=== PATIENT | female | born 1990 | race Caucasian/White ===

== ENCOUNTER 2021-07-15 13:17 | Inpatient (IN) | payer OTHER, SELFPAY ==
[2021-07-15] VITALS (13 sets, daily range): BP systolic 99–152; BP diastolic 63–86; PULSE 70–118; RESP 16; TEMP 36.1–36.9
[2021-07-15] MEDS: LACTATED RINGERS 1,000 ML 125 ML IV CONT (13:50)
[2021-07-15 13:56] LABS: Basophils Percent Auto 0.2 % (0.2-1.2); Eosinophils Absolute Auto 0.1 K/mm3 (0-0.3); Eosinophils Percent Auto 0.7 % (0-4.4); Hematocrit 31.9 % (37.0-47.0); Hemoglobin 10.6 g/dL (12.0-15.0); Immature Granulocyte Absolute 0.05 K/mm3 (0.00-0.031); Immature Granulocyte Percent A 0.4 % (0-0.5); Lymphocytes Absolute Auto 2.24 K/mm3 (0.9-3.2); Lymphocytes Percent Auto 18.6 % (18.3-44.2); Mean Corpuscular HGB Conc 33.2 g/dl (32-36); Mean Corpuscular Volume 87.4 fl (80-100); Mean Platelet Volume 11.2 fl (7.4-10.4); Monocytes Absolute Auto 0.7 K/mm3 (0.1-0.6); Neutrophils Absolute Auto 8.9 K/mm3 (1.3-6.7); Neutrophils Percent Auto 74.1 % (45.5-73.1); Platelet Count Result 264 k/mm3 (150-375); Red Blood Count 3.65 M/mm3 (4.2-5.4); White Blood Count 12.1 K/mm3 (4.5-10.0)
[2021-07-15] MEDS: LIDOCAINE HCL 1% PF 30 ML VIAL (14:45)
[2021-07-15] MEDS: OXYTOCIN 30 UNITS/NS 500 ML 30 UNITS/500 ML BAG 999 UNITS IV CONT (14:46)
--- NOTE | 2021-07-15 15:01 | WPDOBADMIT ---
Obstetrics - Admit Note Admission Note: record reviewed. Additions to the history and/or subsequent changes in the physical findings follow. 30 y/o at 36 5/7 weeks here with contractions. Cervix 7 cm on admission, has progressed rapidly. GBS neg. AVSS NST reactive TOCO: contractions every 2-3 min ABD soft, nontender, gravid EXT nontender Cervix Complete / +2. AROM with thin meconium. A: IUP at 36 5/7 weeks with labor. P: See delivery note.
--- NOTE | 2021-07-15 15:03 | PM.OBPRVD ---
OB - Delivery Note Procedure Delivery date: 07/15/21 Procedure: Delivery monitor: external FHT and external uterine Route of delivery: Laceration Description: Perineal - 2nd Degree Delivery repair: vicryl (3-0) Specimen: Yes (cord blood) Quantitative Blood Loss (ml): 165 Anesthesia type: Local (1% lidocaine) Disposition: PACU Complications: None Narrative: 30 y/o G1 at 38 6/7 weeks gestation who presented to the hospital with contractions. She was 7 cm dilated on admission and rapidly progressed to complete dilation. AROM with thin meconium. There was not time to start antibiotics for status. GBS was negative, however. She pushed with good effort and delivered the infant's head to the perineum, followed by the body. The nose and mouth were bulb suctioned. After a delay, the cord was clamped and cut. The infant was handed off the field. Cord blood was collected. The placenta delivered spontaneously and was grossly normal in appearance. The usual 3 vessel cord was noted. A second degree midline perineal laceration was sustained. This was infiltrated with 12 mL of 1% lidocaine and reapproximated using 3 0 Vicryl in the usual layered fashion. Excellent hemostasis resulted as did excellent reapproximation of the normal anatomy. Needle and instrument counts were correct. The patient was taken to recovery room in stable condition. The went to the nursery in stable condition. I was present and scrubbed for the entire delivery. [place] Baby Date of : 07/15/21 Time of : 18:39 Weeks of gestation at delivery: 38 Infant gender: Female Weight (pounds): 7 Weight (ounces): 4 presentation: vertex position: Left Occiput Anterior Placenta delivery description: Spontaneous and Normal Configuration cord vessel description: 3 Vessels and Delayed Cord Clamping score one minute: 8 score five minutes: 9
--- NOTE | 2021-07-15 15:04 | P.DS_ITS ---
DS: Admitting Diagnosis Discharge Date 07/16/21 Admitting Diagnosis IUP at 36 5/7 weeks Labor DS: Discharge Diagnosis Discharge Diagnosis (1) (normal spontaneous vaginal delivery): Code(s): O80 - Encounter for full-term uncomplicated delivery Status: Acute (2) labor with delivery: Code(s): O60.10X0 - labor with delivery, unspecified trimester, not applicable or unspecified Status: Acute OB - DS: Summary OB Procedures : None OB Procedures Intrapartum: Spontaneous Vag Delivery OB Procedures: : None DS: Data Data Completed and Pending Labs on day of discharge: Labs from last 24 hours 07/15/21 07/15/21 13:48 13:48 WBC 12.1 H RBC 3.65 L Hgb 10.6 L Hct 31.9 L MCV 87.4 MCH 29.0 MCHC 33.2 RDW 13.0 Plt Count 264 MPV 11.2 H Immature Gran % (Auto) 0.4 Neut % (Auto) 74.1 H Lymph % (Auto) 18.6 [place] % (Auto) 6.0 Eos % (Auto) 0.7 Baso % (Auto) 0.2 Lymph # (Auto) 2.24 [place] # (Auto) 0.7 H Eos # (Auto) 0.1 Baso # (Auto) 0.0 Abs Immat Gran (auto) 0.05 H Absolute Neuts (auto) 8.9 H Absolute Nucleated RBC 0.0 Nucleated RBC % 0.0 RPR Pending Discharge Plan Discharge Attending physician on discharge: Dallin Meza Discharging Clinician: Dallin Meza Patient Disposition: Home, Self-Care Activity: pelvic rest Diet: regular Discharge Instructions: Call or return if temperature above 100.4? F, increased abdominal pain, increased vaginal bleeding or any new problems. Stand Alone Forms: General Discharge Information Follow-up/Referrals: Dallin Meza MD [Physician] - 6 Weeks Discharge Medications: New ibuprofen 600 mg tablet 600 mg PO Q6H PRN (Reason: cramps) Qty: 30 RF: 0 ferrous sulfate 325 mg (65 mg iron) tablet 325 mg PO DAILY Qty: 30 RF: 0 Continued PNV cmb#95-ferrous fumarate-FA [] 28 mg iron- 800 mcg Tablet 1 tablet PO DAILY RF: 0 Date of admission: 07/15/21 13:17 Primary Care Provider: Meet,Jenniffer Vázquez Admitting Provider: Dallin Meza Attending physician on admission: Dallin Meza Condition: Stable
[2021-07-15] MEDS: OXYTOCIN 30 UNITS/NS 500 ML 30 UNITS/500 ML BAG 125 UNITS IV CONT (15:10)
--- NOTE | 2021-07-15 15:53 | LDADM ---
This patient, Arleth Tirado, was admitted to Labor/Delivery/Recovery 105 on 07/15/21 at 13:17. Plans for labor, pain management and were discussed with patient. Patient/family oriented to hospital policies and general routines including ID bracelet, bed and alarms, visiting hours, pain management, procedures, bathroom and other care routines, personal items, smoking policy, room service/diet and guest tray routines, infant security routines, and visiting hours. Patient/Family are encouraged to report perceived risks to care and to ask questions if they do not understand what they are told or what they should do. See OBIX for further documentation.
[2021-07-15] MEDS: IBUPROFEN 600 MG TABLET PO ×2 (16:23→22:38)
[2021-07-15] MEDS: WITCH HAZEL 40 PADS 1 PAD TOPICAL (16:24)
[2021-07-15] MEDS: BENZOCAINE 20% AER SPR (*SP) 56 GM CAN 1 SPRAY TOPICAL (16:24)
--- NOTE | 2021-07-15 17:34 | PC.NURSE ---
Patient transferred to post room #290. Support person present. Oriented to unit, room, information board, rooming in, admission packet and security measures. Patient verbalizes understanding.
[2021-07-16] MEDS: IBUPROFEN 600 MG TABLET PO (04:39)
[2021-07-16 05:19] LABS: Hematocrit 27.8 % (37.0-47.0); Hemoglobin 9.1 g/dL (12.0-15.0)
[2021-07-16 08:25] VITALS: BP 118/76; PULSE 85; RESP 18; TEMP 37.1; O2SAT 99
--- NOTE | 2021-07-16 08:45 | PM.OBPNVD ---
OB - PN: Subj Subjective Date/time seen: 07/16/21 0845 Narrative: Pain OK. Would like to go home. OB - PN: Obj Data Labs CBC & Chem 7: 07/16/21 04:38 Labs: Laboratory Results - last 24 hr 07/15/21 07/15/21 07/15/21 13:48 13:48 13:48 WBC 12.1 H RBC 3.65 L Hgb 10.6 L Hct 31.9 L MCV 87.4 MCH 29.0 MCHC 33.2 RDW 13.0 Plt Count 264 MPV 11.2 H Immature Gran % (Auto) 0.4 Neut % (Auto) 74.1 H Lymph % (Auto) 18.6 [place] % (Auto) 6.0 Eos % (Auto) 0.7 Baso % (Auto) 0.2 Lymph # (Auto) 2.24 [place] # (Auto) 0.7 H Eos # (Auto) 0.1 Baso # (Auto) 0.0 Abs Immat Gran (auto) 0.05 H Absolute Neuts (auto) 8.9 H Absolute Nucleated RBC 0.0 Nucleated RBC % 0.0 RPR Non-reactive Blood Type AB Positive Antibody Screen Negative 07/16/21 04:38 WBC RBC Hgb 9.1 L Hct 27.8 L MCV MCH MCHC RDW Plt Count MPV Immature Gran % (Auto) Neut % (Auto) Lymph % (Auto) [place] % (Auto) Eos % (Auto) Baso % (Auto) Lymph # (Auto) [place] # (Auto) Eos # (Auto) Baso # (Auto) Abs Immat Gran (auto) Absolute Neuts (auto) Absolute Nucleated RBC Nucleated RBC % RPR Blood Type Antibody Screen OB - PN A/P Plan Comments: A: PPD#1, doing well. P: Home if OK with peds, to f/u 6 weeks. Exam Psych: Other: AVSS ABD soft, nontender, fundus firm EXT nontender
--- NOTE | 2021-07-16 09:00 | PC.NURSE ---
Consult with pt., mother reports is eagerly feeding with slight tenderness. This is mother?s 2nd child to breastfeed. Reviewed feeding cues, frequencies, duration of feedings, feeding elimination flow sheet, and signs of adequate intake. Demonstrated stimulation techniques to wake for feeding. Reviewed signs of a correct latch, effective nursing and suck swallow ratio. Nipple care reviewed of lanolin after feedings and warm compresses as needed. Requested mother to call out for RN/LC assistance next feeding to assess latch due reported nipple tenderness. Instructed feeding should be initiated three hours from start of last feeding or if feeding cues are noted before. Mother voiced understanding of information shared.
[2021-07-16] MEDS: POLYSACCHARIDE IRON COMPLEX 150 MG CAPSULE PO (09:11)
[2021-07-16] MEDS: MULTIVIT/MIN/PREN/FOL AC/IRON TABLET 1 TAB PO (09:11)
[2021-07-16] MEDS: DOCUSATE SODIUM 100 MG CAPSULE PO (09:11)
[2021-07-16 11:48] VITALS: BP 107/71; PULSE 69; RESP 18; TEMP 36.8; O2SAT 100
--- NOTE | 2021-07-16 12:45 | PC.NURSE ---
Mother called out for assist with feeding. is able to freely thrust tongue past gum ridge and flange both lips. Skin is intact on both nipples, no redness and bruising noted. Discussed establishing in the late may be more difficult due to their immaturity, may be less alert, have less stamina, and have greater difficulty with latch, suck, and swallow. ?s feeding may impact mother?s milk supply, pumping may need to be initiated until milk supply is well established and is able to effectively breastfeed without supplementation. Reviewed infant feeding cues, frequencies, duration of feedings, feeding elimination flow sheet, and signs of adequate intake. Demonstrated stimulation techniques to wake infant for feeding. Assisted with to breast. Reviewed positioning/alignment in cross cradle, holding breast in ?U? hold and guided asymmetrical latch on. Reviewed rational for each. Mother puts to breast in cradle. Infant able to latch correctly within a few attempts. nursed eagerly with steady draws and occasional swallowing noted, some pausing noted. Reviewed signs of a correct latch, effective nursing and suck swallow ratio. Suggested mother stimulate while feeding to increase stimulation for milk supply, for increased intake and to assist with maintaining deep latch. would slip to shallow latch causing tenderness. Demonstrated how to adjust latch more deeply while feeding as needed. Mother reports she can feel the difference in latch with less tenderness. Suggested mother hold breast during entire feeding to assist maintaining deep latch. Nipple care reviewed of lanolin after feedings, warm compresses as needed. Instructed mother to call out for RN assistance if she is unable to latch for feeding or she has discomfort with nursing. Instructed feeding should be initiated three hours from start of last feeding or if feeding cues are noted before. Mother voiced understanding of information shared.
[2021-07-16 12:58] LABS: Rapid Plasma Reagin Non-Reactive (NonReactive)
--- NOTE | 2021-07-16 16:40 | PC.NURSE ---
Patient instructed to view the discharge video Mother & Baby Care, The First Two Weeks . Patient was given the opportunity and encouraged to ask questions. Patient verbalized understanding of information shared and has been given the mother/baby guide for home reference.
[2021-07-18 13:47] VITALS: BP 122/74; PULSE 77; RESP 20; TEMP 37.1; O2SAT 98
== END 2021-07-16 17:12 | disposition home or self-care (01) | DRG 807 ==
LOC: ANHLDR 13:44 → ANHOB2 17:47
PROVIDERS: Admitting Provider Obstetrics & Gynecology; PCP Internal Medicine; Visit Provider Obstetrics & Gynecology
DX: O60.14X0 Preterm labor third trimester with preterm delivery third trimester, not applicable or unspecified (principal); Z37.0 Single live birth; Z3A.36 36 weeks gestation of pregnancy; P96.83 Meconium staining; O70.1 Second degree perineal laceration during delivery
CPT/HCPCS: 36415; 85014; 85018; 85025; 86592; 86850; 86900; 86901; 88307; A9270; J2590; J2795; J7120

== ENCOUNTER 2021-07-24 11:30 | Outpatient (RCR) | payer OTHER, SELFPAY ==
--- NOTE | 2021-07-24 12:00 | PC.NURSE ---
IN 1010 OUT 1100 HISTORY: Pt. delivered at [facility] at 36 weeks. had no complications after delivery. Mother had no complications after delivery. Mother and discharged, with a feeding plan with pumping and supplementation after each feeding due to ineffective feeding, and jaundice. Infant is now 9 days old. appears to be well cared for. last seen seen by ICP at 7 days. Mother reports: Currently at 6 wets per day and 3 yellow seedy stools per day. weight: 7#4 Discharge weight: 6#8 Last Weight: 7#0 at 1 week Mother reports is very sleepy at breast. Mother puts to breast each feeding for 15-30 minutes, reporting infant is eager for first breast and will have more sleeping then feeding on second breast. Mother is pumping and supplementing EBM up to 2 oz per feeding. Mother feels very full at breasts after feeding. She is pumping with slight tenderness at times. Mother wishes: To pump and supplement less. OBSERVATION: Pre feeding weight: 3194 Post feeding weight: 3261 Tongue is able to move tongue freely past gum ridge, both lips flange easily. Mother has everted nipples, skin is intact slightly reddened. Discussed establishing in the may be more difficult due to their immaturity, may be less alert, have less stamina, and have greater difficulty with latch, suck, and swallow. ?s feeding may impact mother?s milk supply, pumping may need to be continued until infant is able to effectively breastfeed without supplementation. Mother appears to be firm almost engorged to breast. Discussed fore and hind milk, advising to self express before feeding to soften breast for deeper latch and for to get to hind milk quickly. Mother puts to breast in cradle and allows infant to self attach shallow. Infant is sleepy with intermittent suck swallow. Demonstrated stimulation techniques to wake infant for feeding. Assisted with to breast. Reviewed positioning/alignment in cross cradle, holding breast in ?U? hold and guided asymmetrical latch on. Reviewed rational for each. Infant able to latch correctly within a few attempts. nursed eagerly with steady draws and occasional swallowing noted followed with long pausing. Advised mother stimulate while feeding to increased intake and to assist with maintaining deep latch. Reviewed signs of a correct latch, effective nursing and suck swallow ratio. Infant would slip to shallow latch causing tenderness. Demonstrated how to adjust latch more deeply while feeding as needed. Mother reports she can feel the difference in latch with no tenderness. Discussed with an early stimulation while at breast and assisting to maintain latch is needed every feeding. Discussed the difference of effective vs ineffective feeding. Reviewed infant is latching with good burst of suckling, she is not feeding consistently with adequate milk transfer at this time and continues to need supplement after . Feeding options discussed, Feeding Plan is for mother to put to breast each feeding for up to 15 minutes, then pace feed supplement pump f other breast to empty. Mother will comfort pump infant nursed if needed. Parents are comfortable with supplementation and pumping. Reviewed when infant begins to nurse effectively with long draws and frequent swallowing noted, may decrease supplementation and discontinue pumping. Suggested mother have PCP, LC softball core molder observe feeding before discontinuing supplementation. Discussed increasing supplementation as requires to satisfactions. Reviewed paced feeding and suggested to st
--- NOTE | 2021-07-28 14:53 | PC.NURSE ---
Attempt to call Arleth two times today. Messages left. In the last message, I told Arleth that a nurse from the office would call her again later in the week. I encouraged her to Dr. Mitzi Meza if she has any questions or concerns this week. Notes from LC visit last week faxed to Dr. Mitzi Meza.
== END 2021-08-07 12:42 | disposition home or self-care (01) ==
LOC: ANHOBOP 11:30
PROVIDERS: PCP Internal Medicine; Visit Provider Pediatrics
DX: Z39.1 Encounter for care and examination of lactating mother (principal)
CPT/HCPCS: 99212; G0463

== ENCOUNTER 2023-10-16 08:38 | Inpatient (IN) | payer OTHER, SELFPAY ==
[2023-10-16] VITALS (28 sets, daily range): BP systolic 109–148; BP diastolic 66–95; PULSE 76–103; RESP 16; TEMP 36.6–37; O2SAT 97–100; BMI 37.1
[2023-10-16 10:55] LABS: Basophils Percent Auto 0.2 % (0.2-1.2); Eosinophils Absolute Auto 0.1 K/mm3 (0-0.3); Eosinophils Percent Auto 0.6 % (0-4.4); Hematocrit 34.1 % (37.0-47.0); Hemoglobin 10.9 g/dL (12.0-15.0); Immature Granulocyte Absolute 0.03 K/mm3 (0.00-0.031); Immature Granulocyte Percent A 0.4 % (0-0.5); Lymphocytes Absolute Auto 0.99 K/mm3 (0.9-3.2); Lymphocytes Percent Auto 11.6 % (18.3-44.2); Mean Corpuscular Hemoglobin 28.4 pg (26-34); Mean Corpuscular Volume 88.8 fl (80-100); Mean Platelet Volume 12.1 fl (7.4-10.4); Monocytes Absolute Auto 0.7 K/mm3 (0.1-0.6); Monocytes Percent Auto 7.6 % (2.6-8.5); Neutrophils Absolute Auto 6.8 K/mm3 (1.3-6.7); Neutrophils Percent Auto 79.6 % (45.5-73.1); Platelet Count Result 195 k/mm3 (150-375); Red Blood Count 3.84 M/mm3 (4.2-5.4); Red Cell Distribution Width 15.2 % (11.5-14.5); White Blood Count 8.5 K/mm3 (4.5-10.0)
--- NOTE | 2023-10-16 11:05 | WPDOBADMIT ---
Obstetrics - Admit Note Admission Note: record reviewed. Additions to the history and/or subsequent changes in the physical findings follow. 33 y/o at 39 weeks here with contractions. GBS neg. Labor diagnosed. AVSS NST reactive TOCO: contractions ABD soft, nontender, gravid, vertex EXT notnender Cervix /-2. AROM with clear fluid. Vertex. A: IUP at term with labor. P: Anticipate .
--- NOTE | 2023-10-16 12:17 | LDADM ---
This patient, Arleth Tirado, was admitted to Labor/Delivery/Recovery 105 on 10/16/23 at 08:38. Plans for labor, pain management and were discussed with patient. Patient/family oriented to hospital policies and general routines including ID bracelet, bed and alarms, visiting hours, pain management, procedures, bathroom and other care routines, personal items, smoking policy, room service/diet and guest tray routines, infant security routines, and visiting hours. Patient/Family are encouraged to report perceived risks to care and to ask questions if they do not understand what they are told or what they should do. See OBIX for further documentation.
[2023-10-16] MEDS: OXYTOCIN 30 UNITS/NS 500 ML 30 UNITS/500 ML BAG 999 UNITS IV CONT (14:57)
[2023-10-16] MEDS: LIDOCAINE HCL 1% LOCAL INJ 20 ML VIAL (15:01)
--- NOTE | 2023-10-16 15:15 | PM.OBPRVD ---
OB - Vaginal Delivery Note Procedure Delivery date: 10/16/23 Induction method: None Delivery augmentation: Rupture of Membranes Delivery monitor: External FHT and External Uterine Route of delivery: Laceration Description: Perineal - 2nd Degree Delivery repair: vicryl (3-0) Specimen: Yes (Cord blood) Quantitative Blood Loss (ml): 140 Anesthesia type: Local (1% lidocaine) Disposition: PACU Complications: None Narrative: 33 y/o at 39 weeks gestation who presented to the hospital with contractions. Labor was diagnosed. Amniotomy was performed with return of thinly meconium-stained fluid. Her labor progressed and her cervix dilated completely. She pushed with good effort and delivered the infant's head to the perineum, followed by the body. The nose and mouth were bulb suctioned. After a delay, the cord was clamped and cut. The was handed off the field. Cord blood was collected. The placenta delivered spontaneously and was grossly normal in appearance. The usual 3 vessel cord was noted. A second degree midline perineal laceration was sustained. This was infiltrated with 10mL of 1% lidocaine and reapproximated using 3 0 Vicryl in the usual layered fashion. Excellent hemostasis resulted as did excellent reapproximation of the normal anatomy. Needle and instrument counts were correct. The patient was taken to recovery room in stable condition. The went to the nursery in stable condition. I was present and scrubbed for the entire delivery. [place] Baby Date of : 10/16/23 Time of : 14:53 Weeks of gestation at delivery: 39 Infant gender: Male Weight (pounds): 8 Weight (ounces): 12 presentation: vertex position: Left Occiput Posterior Placenta delivery description: Spontaneous Cord Vessel Description: 3 Vessels and Delayed Cord Clamping score one minute: 8 score five minutes: 9
--- NOTE | 2023-10-16 15:19 | P.DS_ITS ---
DS: Admitting Diagnosis Discharge Date 10/18/23 Admitting Diagnosis IUP at 39 weeks Labor DS: Discharge Diagnosis Discharge Diagnosis (1) (normal spontaneous vaginal delivery): Code(s): O80 - Encounter for full-term uncomplicated delivery Status: Acute OB - DS: Summary OB Procedures : None OB Procedures Intrapartum: Spontaneous Vag Delivery OB Procedures: : None Peripartum Data Laceration Description: Perineal - 2nd Degree Time Spent with Patient Time attestation: Total time spent providing and/or coordinating discharge services: DS: Data Data Completed and Pending Labs on day of discharge: Labs from last 24 hours 10/16/23 10:46 WBC 8.5 RBC 3.84 L Hgb 10.9 L Hct 34.1 L MCV 88.8 MCH 28.4 MCHC 32.0 RDW 15.2 H Plt Count 195 MPV 12.1 H Immature Gran % (Auto) 0.4 Neut % (Auto) 79.6 H Lymph % (Auto) 11.6 L [place] % (Auto) 7.6 Eos % (Auto) 0.6 Baso % (Auto) 0.2 Lymph # (Auto) 0.99 [place] # (Auto) 0.7 H Eos # (Auto) 0.1 Baso # (Auto) 0.0 Abs Immat Gran (auto) 0.03 Absolute Neuts (auto) 6.8 H Absolute Nucleated RBC 0.000 Nucleated RBC % 0.0 RPR Pending Blood Type AB Positive Antibody Screen Negative Discharge Plan Discharge Attending physician on discharge: Dallin Meza Discharging Clinician: Dallin Meza Patient Disposition: Home, Self-Care Activity: pelvic rest Diet: regular Discharge Instructions: Call or return if temperature above 100.4? F, increased abdominal pain, increased vaginal bleeding or any new problems. Stand Alone Forms: General Discharge Information Follow-up/Referrals: Dallin Meza MD [Physician] - 6 Weeks Discharge Medications: New ibuprofen 600 mg tablet 600 mg PO Q6H PRN (Reason: cramps) Qty: 30 0RF Continued PNV cmb#95-ferrous fumarate-FA [] 28 mg iron- 800 mcg Tablet 1 tablet PO DAILY Date of admission: 10/16/23 08:38 Primary Care Provider: MariiaDusty Admitting Provider: Dallin Meza Attending physician on admission: Dallin Meza Condition: Stable
[2023-10-16] MEDS: OXYTOCIN 30 UNITS/NS 500 ML 30 UNITS/500 ML BAG 125 UNITS IV CONT (15:31)
[2023-10-16] MEDS: ACETAMINOPHEN 325 MG TABLET 650 MG PO (15:57)
[2023-10-16] MEDS: WITCH HAZEL 40 PADS 1 PAD TOPICAL (15:57)
[2023-10-16] MEDS: BENZOCAINE 20% AER SPR (*SP) 56 GM CAN 1 SPRAY TOPICAL (15:57)
[2023-10-16] MEDS: IBUPROFEN 600 MG TABLET PO (15:58)
--- NOTE | 2023-10-16 17:16 | PC.NURSE ---
Patient transferred to post room #291 via wheel chair. Support person present. Oriented to unit, room, information board, rooming in, admission packet and security measures. Patient verbalizes understanding.
[2023-10-17] MEDS: IBUPROFEN 600 MG TABLET PO (04:28)
[2023-10-17 04:46] LABS: Hematocrit 32.1 % (37.0-47.0); Hemoglobin 10.2 g/dL (12.0-15.0)
[2023-10-17 07:46] VITALS: BP 115/69; PULSE 78; RESP 18; TEMP 36.5; O2SAT 98
[2023-10-17] MEDS: MULTIVIT/MIN/PREN/FOL AC/IRON TABLET 1 TAB PO (08:08)
[2023-10-17] MEDS: DOCUSATE SODIUM 100 MG CAPSULE PO (08:08)
[2023-10-17] MEDS: ACETAMINOPHEN 325 MG TABLET 650 MG PO (08:08)
--- NOTE | 2023-10-17 10:06 | P.PNOB_ITS ---
OB - PN: Subj Subjective Date/time seen: 10/17/23 10:06 Narrative: Pain OK. Would like circumcision for son. OB - PN: Obj Data Labs 10/17/23 04:15 Labs: Laboratory Results - last 24 hr 10/16/23 10/17/23 10:46 04:15 WBC 8.5 RBC 3.84 L Hgb 10.9 L 10.2 L Hct 34.1 L 32.1 L MCV 88.8 MCH 28.4 MCHC 32.0 RDW 15.2 H Plt Count 195 MPV 12.1 H Immature Gran % (Auto) 0.4 Neut % (Auto) 79.6 H Lymph % (Auto) 11.6 L [place] % (Auto) 7.6 Eos % (Auto) 0.6 Baso % (Auto) 0.2 Lymph # (Auto) 0.99 [place] # (Auto) 0.7 H Eos # (Auto) 0.1 Baso # (Auto) 0.0 Abs Immat Gran (auto) 0.03 Absolute Neuts (auto) 6.8 H Absolute Nucleated RBC 0.000 Nucleated RBC % 0.0 Blood Type AB Positive Antibody Screen Negative OB - PN A/P Plan Comments: A: PPD#1, doing well. P: Routine care. Reviewed circ. Exam Psych: Other: AVSS ABD soft, nontender, fundus firm EXT nontender
[2023-10-17 20:00] VITALS: BP 129/82; PULSE 61; RESP 18; TEMP 36.4; O2SAT 100
--- NOTE | 2023-10-18 08:38 | PM.OBPNVD ---
OB - PN: Subj Subjective Date/time seen: 10/18/23 08:38 Narrative: Pain OK. Would like to go home. OB - PN: Obj Data Labs 10/17/23 04:15 OB - PN A/P Plan Comments: A: PPD#2, doing well. P: Home to f/u 6 weeks. Exam Psych: Other: AVSS ABD soft, nontender, fundus firm EXT nontender
[2023-10-18 09:24] VITALS: BP 122/81; PULSE 79; RESP 18; TEMP 36.2; O2SAT 100
[2023-10-18] MEDS: MULTIVIT/MIN/PREN/FOL AC/IRON TABLET 1 TAB PO (09:33)
[2023-10-18] MEDS: DOCUSATE SODIUM 100 MG CAPSULE PO (09:33)
--- NOTE | 2023-10-18 10:10 | PC.NURSE ---
[id number] Introductions were made, then consulted with patient to assess needs related to . Mother led the conversation with her?plans to feed?her infant and the?experience so far. Encouraged understanding of the benefits of skin to skin (demonstrating unwrapping and placing upright on her chest), stimulating with massage touch, changing positions to encourage wakefulness, how to watch for early feeding cues (handout visual), responsive feeding, feeding on demand (aiming for 8-12 times in 24 hours, about every 2-3 hours), milk production, building/maintaining a milk supply, signs of adequate intake with swallowing and output. is in the nursery post circumcision. Name written on the communication board to call for assistance. [phone] Infant taken to parents after the circumcision check was completed. Mother works well with her infant with encouragement and education. Reviewed positioning and ear, shoulder, hip alignment, supporting the breast to facilitate a deep latch, asymmetrical latch (off-center), leading with the chin with a big, open, wide gape and body close to mother. Infant latched optimally to the right breast in cross cradle position. Education given to the mother of how to visualize the suckling (with good rocking jaw motion), swallows (dropping of the lower jaw) and how to listen for drinking at the breast (the ka sound) and infant demonstrated. was able to maintain latch without pain to mother protecting the nipple with optimal positioning and latching. Infant has had appropriate feedings in the last 24 hours meets the outcomes for weight, output, blood sugar and jaundice at this time. Reinforced understanding of milk production, transition of milk, signs of adequate intake, transition of stool, prevention/relief of engorgement, plugged ducts, mastitis, responsive watching for feeding cues, the different methods of stimulating infant to breastfeed 1-3 hours after the start of the last feeding, community resources, and when to call a provider using the resource of the feeding sheet along with the mom and baby guide. Parents voiced understanding of the information shared, is confident to continue effectively her at home, when to call for assistance, denies any additional assistance or education at this time. Reported to the Primary RN.
[2023-10-18 16:53] LABS: Rapid Plasma Reagin Non-Reactive (NonReactive)
== END 2023-10-18 12:45 | disposition home or self-care (01) | DRG 807 ==
LOC: ANHLDR 15:21 → ANHOB2 17:30
PROVIDERS: Admitting Provider Obstetrics & Gynecology; PCP Internal Medicine; Visit Provider Obstetrics & Gynecology
DX: O70.1 Second degree perineal laceration during delivery (principal); Z37.0 Single live birth; Z3A.39 39 weeks gestation of pregnancy
CPT/HCPCS: 36415; 85014; 85018; 85025; 86592; 86850; 86900; 86901; A9270; J2590